=== PATIENT | female | born 1940 | race African-American/Black ===

== ENCOUNTER 2023-03-18 15:39 | Emergency (ER) | payer MEDICARE ==
[~2023-03-18 15:39] MED LIST: Iopamidol 370 76% 100 ML VIAL ONE
[2023-03-18 16:17] LABS: INR-International Normal Ratio 1.8; Prothrombin Time 21.2 sec (12.0-14.7)
[2023-03-18 16:18] LABS: PTT 34.3 sec (22.9-36.1)
[2023-03-18 16:24] LABS: Base Excess-Venous 3.6 mmol/L (-2.0 to 3.0); Bicarbonate (HCO3v) 29.1 mmol/L (22.0-28.0); CO2 Tension (PvCO2) 46.3 mmHg (42.0-51.0); Calcium, Ionized 1.05 mmol/L (1.15-1.33); Chloride 102 mmol/L (98-107); Hemoglobin - Calc 14.8 g/dL (12.0-16.0); Potassium 4.3 mmol/L (3.5-5.1); Sodium 140 mmol/L (138-145); T. Carbon Dioxide 30.5 mmol/L (22.0-28.0); vO2 Saturation-calc 98.1 % (60.0-85.0)
[2023-03-18 16:26] LABS: ALT (SGPT) 20 U/L (8-55); AST (SGOT) 30 U/L (5-34); Albumin 3.6 g/dL (3.4-4.8); Alkaline Phosphatase 63 U/L (40-110); Anion Gap 17 mmol/L (10-20); BUN (Urea Nitrogen) 9 mg/dL (9.8-20.1); Bilirubin, Total 1.4 mg/dL (0.2-1.2); CK (CPK) 400 U/L (29-168); Calc. Creatinine Clearance 0 mL/min (70-130); Calcium 9.2 mg/dL (7.8-10.44); Carbon Dioxide 26 mmol/L (23-31); Chloride 100 mmol/L (98-107); Estimated GFR 75; Globulin 2.7 g/dL (2.4-3.5); Glucose 235 mg/dL (83-110); Lipase 10 U/L (8-78); Magnesium 1.3 mg/dL (1.6-2.6); Potassium 3.7 mmol/L (3.5-5.1); Protein, Total 6.3 g/dL (5.8-8.1); Sodium 139 mmol/L (136-145)
[2023-03-18 16:31] LABS: Band 9 % (5-11); Hemoglobin 13.8 g/dL (12.0-16.0); Lymphocytes 10 % (21-51); MDiff Complete? YES; Mean Corpuscular HGB CONC 35.4 g/dL (32.0-36.0); Mean Corpuscular Hemoglobin 29.1 pg (27.0-31.0); Mean Corpuscular Volume 82.2 fl (78.0-98.0); Mean Platelet Volume 9.8 fL (7.4-10.4); Monocytes 5 % (0-10); Neutrophil 76 % (42-75); Platelet Count 196 10x3/uL (130-400); Platelet Morphology Comment Appears Adequate; RBC Distribution Width 13.7 % (11.5-14.5); Red Blood Cell (RBC) Count 4.73 mill/uL (4.20-5.40); White Blood Cell (WBC) Count 7.6 10x3/uL (4.8-10.8)
[2023-03-18] MEDS ORDERED: Magnesium 2 GM/50 ML BAG (IN WATER) ONE (16:37)
[2023-03-18 16:42] LABS: Bilirubin Negative (Negative); Blood, Urine Trace (Negative); Clarity Hazy (Clear); Glucose, Urine (Dipstick) 100 mg/dL (Negative); Ketone, Urine 15 mg/dL (Negative); Leukocyte Negative (Negative); Nitrite Negative (Negative); Protein, Urine (Dipstick) Negative (Neg-Trace); Specific Gravity, Urine 1.015 (1.005-1.030); Urobilinogen 0.2 mg/dL (Less than 2); pH, Urine 7.5 (5.0-9.0)
[2023-03-18 16:46] LABS: RBC/HPF 0-3 HPF (0-3)
[2023-03-18 16:47] LABS: Bacteria/HPF 1+ HPF (None Seen); Squamous Epithelial 0-3 HPF (0-3); WBC/HPF 0-3 HPF (0-3)
[2023-03-18] MEDS ORDERED: Phytonadione 10 MG/ML AMP ONE (17:07)
[2023-03-18] MEDS ORDERED: Sodium Chloride 0.9% 50 ML ONE (17:07)
== END 2023-03-18 17:54 | disposition short-term general hospital (02) ==
LOC: MADERS 15:39
DX: S06.6XAA Traumatic subarachnoid hemorrhage with loss of consciousness status unknown, initial encounter (principal); S00.91XA Abrasion of unspecified part of head, initial encounter; E83.42 Hypomagnesemia; E11.9 Type 2 diabetes mellitus without complications; I10 Essential (primary) hypertension; Z79.899 Other long term (current) drug therapy; Z79.84 Long term (current) use of oral hypoglycemic drugs; Z79.82 Long term (current) use of aspirin; Z79.01 Long term (current) use of anticoagulants; W19.XXXA Unspecified fall, initial encounter
CPT/HCPCS: 36415; 70450; 71045; 71260; 72125; 74177; 80053; 81003; 81015; 82330; 82435; 82550; 82803; 83605; 83690; 83735; 83880; 84132; 84295; 84484; 85025; 85610; 85730; 87086; 93005; 96365; 96367; 99292; G0390; J3430; J3475; Q9967

== ENCOUNTER 2024-01-24 17:52 | Emergency (ER) | payer MEDICARE ==
[2024-01-24 18:51] LABS: Bilirubin Small (Negative); Blood, Urine Negative (Negative); Glucose, Urine (Dipstick) Negative (Negative); Ketone, Urine Negative (Negative); Leukocyte Negative (Negative); Nitrite Negative (Negative); Protein, Urine (Dipstick) Negative (Neg-Trace); Urobilinogen 0.2 mg/dL (Less than 2); pH, Urine 5.5 (5.0-9.0)
[2024-01-24 18:55] LABS: Clarity Hazy (Clear)
[2024-01-24 18:58] LABS: Bacteria/HPF Rare-Few HPF (None Seen); CAUTI Indications for Culture Alt mental st,lethar; RBC/HPF None Seen HPF (0-3); Urine Culture Reflex No No; WBC/HPF None Seen HPF (0-3); Yeast-Budding 3+ HPF (None Seen); Yeast-Hyphae 1+ HPF (None Seen)
[2024-01-24] MEDS ORDERED: Acetaminophen 650 MG Suppository ONE (19:00)
[2024-01-24 19:01] LABS: ALT (SGPT) 9 U/L (8-55); AST (SGOT) 17 U/L (5-34); Albumin 2.6 g/dL (3.4-4.8); Alkaline Phosphatase 98 U/L (40-110); Anion Gap 23 mmol/L (10-20); BUN (Urea Nitrogen) 51 mg/dL (9.8-20.1); Bilirubin, Total 0.7 mg/dL (0.2-1.2); Calc. Creatinine Clearance 0 mL/min (70-130); Calcium 8.2 mg/dL (7.8-10.44); Carbon Dioxide 24 mmol/L (23-31); Chloride 92 mmol/L (98-107); Estimated GFR 34; Glucose 272 mg/dL (83-110); Protein, Total 5.6 g/dL (5.8-8.1); Sodium 136 mmol/L (136-145)
[2024-01-24 19:03] LABS: Troponin I 0.074 ng/mL (< 0.028)
[2024-01-24 19:07] LABS: Potassium 2.6 mmol/L (3.5-5.1)
[2024-01-24 19:13] LABS: Hematocrit 30.2 % (36.0-47.0); Hemoglobin 10.1 g/dL (12.0-16.0); Hypochromia SLIGHT = 6-15 cells (100X) (0-5/hpf); Lymphocytes 5 % (21-51); MDiff Complete? YES; Manual Diff?? YES; Mean Corpuscular HGB CONC 33.4 g/dL (32.0-36.0); Mean Corpuscular Hemoglobin 29.1 pg (27.0-31.0); Mean Corpuscular Volume 87.1 fl (78.0-98.0); Mean Platelet Volume 8.7 fL (7.4-10.4); Monocytes 1 % (0-10); Neutrophil 90 % (42-75); Platelet Count 333 10x3/uL (130-400); RBC Distribution Width 14.9 % (11.5-14.5); Reactive Lymphocytes 4 % (0-10); Red Blood Cell (RBC) Count 3.47 mill/uL (4.20-5.40); Target Cells SLIGHT = 2-5 cells (100X) (0-1/hpf); White Blood Cell (WBC) Count 25.7 10x3/uL (4.8-10.8)
[2024-01-24 19:14] LABS: Platelet Adequacy Comment Appears Adequate
[2024-01-24] MEDS ORDERED: Potassium Chloride 20 MEQ (100 mL) BAG ONE (19:19)
[2024-01-24 19:23] LABS: Magnesium 1.8 mg/dL (1.6-2.6)
[2024-01-24] MEDS ORDERED: Piperacillin/Tazobactam 4.5 GM VIAL ONE (19:38)
[2024-01-24 19:57] LABS: Base Excess-Venous 5.5 mmol/L (-2.0 to 3.0); Calcium, Ionized 0.94 mmol/L (1.15-1.33); Chloride 94 mmol/L (98-107); Hemoglobin - Calc 11.5 g/dL (12.0-16.0); Potassium 2.3 mmol/L (3.5-5.1); Sodium 135 mmol/L (138-145); T. Carbon Dioxide 29.1 mmol/L (22.0-28.0); vO2 Saturation-calc 99.4 % (60.0-85.0)
[2024-01-24 20:11] LABS: Influenza A by NAA Not Detected (NotDetected); Influenza B by NAA Not Detected (NotDetected); RSV by NAA Not Detected (NotDetected); SARS-CoV-2 NAA Rapid Test Not Detected (NotDetected)
[2024-01-24] MEDS ORDERED: Ipratropium/Albuterol 3 ML NEB ONE ×2 (20:29→22:09)
[2024-01-24] MEDS ORDERED: Vancomycin 1 GM VIAL ONE (21:18)
[2024-01-24] MEDS ORDERED: Norepinephrine 4 MG/4 ML VIAL ONE ×2 (21:58→22:04)
[2024-01-24] MEDS ORDERED: EPINEPHrine 1 MG/10 ML Abboject SYRINGE ONE (22:51)
[2024-01-24] MEDS ORDERED: Sodium Chloride 0.9% 100 ML ONE (22:52)
[2024-01-24] MEDS ORDERED: EPINEPHrine 1 MG/ML VIAL ONE (22:54)
== END 2024-01-25 03:16 | disposition expired ==
LOC: MADERS 17:52
DX: E87.6 Hypokalemia (principal); A41.9 Sepsis, unspecified organism; R57.0 Cardiogenic shock; R41.82 Altered mental status, unspecified; R79.89 Other specified abnormal findings of blood chemistry; I11.0 Hypertensive heart disease with heart failure; I50.9 Heart failure, unspecified; N39.0 Urinary tract infection, site not specified; G20.A1 Parkinson's disease without dyskinesia, without mention of fluctuations; I60.9 Nontraumatic subarachnoid hemorrhage, unspecified; I82.409 Acute embolism and thrombosis of unspecified deep veins of unspecified lower extremity; E11.622 Type 2 diabetes mellitus with other skin ulcer; L89.159 Pressure ulcer of sacral region, unspecified stage; Z79.899 Other long term (current) drug therapy
CPT/HCPCS: 0241U; 51701; 70450; 71045; 80053; 81001; 82330; 82435; 82803; 83605; 83735; 83880; 84132; 84295; 84484; 85014; 85025; 87040; 87077; 87086; 87186; 93005; 96361; 96365; 96367; 96375; 99285; J0171; 36415; J2543; J3370; J3480; J7620